=== PATIENT | female | born 1935 | race Caucasian/White ===

== ENCOUNTER → 2017-12-20 | Day surgery (SDC) | payer OTHER, MEDICARE ==
--- NOTE | 2017-12-22 16:29 | PATH ---
Surgical Pathology Report Patient Name: JODY NOLAN [facility]. Rec. #: [id number] /Age/Gender: 1935 (Age: 82) / F Account: [id number] Location: Taken: 12/20/2017 Received: 12/20/2017 Reported: 12/22/2017 Physicians: Farhan Stout M.D. John Benavides M.D. Specimen(s) Received BREAST CORE BIOPSY Clinical History History of right breast cancer s/p mastectomy and reconstruction. Suspicious mass right posterior axillary line, rule out cancer versus fat necrosis Ultrasound findings: Suspicious Final Diagnosis CHEST WALL, RIGHT, BIOPSY: INVASIVE DUCTAL CARCINOMA, MODERATELY DIFFERENTIATED. LYMPHOVASCULAR INVASION IDENTIFIED. Results of Estrogen Receptor (ER), Progesterone Receptor (KY), & Her2 (IHC) studies performed on block "1" at [place], [place] ([id number]) are as follows: ER (clone [id number] mouse monoclonal antibody by [employer]): 99% nuclear staining with strong intensity (Positive). [place] (clone16 mouse monoclonal antibody by [employer]): 95% nuclear staining with strong intensity (Positive). Her2 IHC (EP3 from [employer], formerly known as [id number], using Dent Polymer Refine detection kit): 1+ (Negative). Comment: Immunohistochemical stains performed at [place], [place] ([id number]) and interpreted at [facility] show the tumor is positive ARVIND-3, and focally for Mammaglobin and GCDFP-15. History of breast carcinoma s/p mastectomy and reconstruction noted. Findings are consistent with recurrent breast carcinoma. Case seen interdepartmentally. Positive and negative controls (internal if applicable) show appropriate results. Formalin fixation and cold ischemic times are within current ASCO/CAP recommendations for ER, [place] and Her2 testing. Electronically Signed Cynthia Blanton M.D. Gross Description Received in formalin labeled "right chest wall biopsy," are 5 june-yellow, cylindrical portions of fibroadipose tissue ranging from 1.0-1.8 cm in length and averaging 0.1 cm in diameter. The specimens are submitted in toto in one cassette. Time to formalin fixation: 2 minutes Total formalin fixation time: Approximately 8 hours. 12/20/201712/20/2017
== END | disposition home or self-care (01) ==
LOC: FRADUS-SUR 09:27
PROVIDERS: ATTEND Surgery Surgical Oncology
PROC: 0HBT3ZX Excision of Right Breast, Percutaneous Approach, Diagnostic (ICD-10-PCS; principal; 2017-12-20)
DX: C50.611 Malignant neoplasm of axillary tail of right female breast (principal); Z17.0 Estrogen receptor positive status [ER+]; N63.31 Unspecified lump in axillary tail of the right breast
CPT/HCPCS: 76942-TC; 87899; 88305-TC; 88342-TC; A4648